=== PATIENT | female | born 1985 | race Caucasian/White ===

== ENCOUNTER 2017-12-27 15:56 | Emergency (ER) | payer BC ==
[~2017-12-27] VITALS: Ht 165.1 cm; Wt 102.3 kg
[2017-12-27 15:59] VITALS: Ht 165.1 cm; Wt 102.3 kg
[2017-12-27 16:41] LABS: BASOPHILS 0.1 % (0-2); EOSINOPHILS 2.1 % (0-7); HEMATOCRIT 36.3 % (36.0-48.0); HEMOGLOBIN 12.8 g/dL (12-16); IMMATURE GRANULOCYTES 0.1 % (0-5); LYMPHOCYTES 32.1 % (15-50); MCH 31.2 pg (26.0-34.0); MCHC 35.3 g/dL (31.0-37.0); MCV 88.5 fL (80.0-100.0); MEAN PLATELET VOLUME 9.6 fL (7.4-10.4); MONOCYTES 6.2 % (2-11); NEUTROPHILS 59.4 % (40-80); PLATELET COUNT 246 10x3/uL (130-400); RDW 12.3 % (11.5-14.5); WBC 7.3 10x3/uL (4.8-10.8)
[2017-12-27 16:46] LABS: APPEARANCE HAZY (CLEAR); BILIRUBIN NEGATIVE (NEGATIVE); COLOR RED (YELLOW); GLUCOSE NEGATIVE (NEGATIVE); KETONE NEGATIVE (NEGATIVE); NITRITE NEGATIVE (NEGATIVE); PROTEIN 1+ mg/dL (NEGATIVE); UROBILINOGEN NORMAL (NORMAL)
[2017-12-27 16:48] LABS: BACTERIA FEW /hpf (NONE SEEN); HCG URINE NEGATIVE (NEGATIVE); RED CELLS - URINE >50 /hpf (0-5)
[2017-12-27 16:59] LABS: ALBUMIN 3.3 g/dL (3.4-5.0); ALKALINE PHOSPHATASE 60 U/L (46-116); ALT (SGPT) 23 U/L (10-68); AMYLASE - SERUM 75 U/L (25-115); BILIRUBIN - TOTAL 0.27 mg/dL (0.2-1.3); CALC OSMOLALITY 277 mosm/kg (275-300); CALCIUM 9.1 mg/dL (8.5-10.1); CARBON DIOXIDE 26.5 mmol/L (21.0-32.0); CHLORIDE - SERUM 102 mmol/L (98-107); CREATININE - SERUM 0.8 mg/dL (0.6-1.3); GLUCOSE 126 mg/dL (74-106); LIPASE 113 U/L (73-393); POTASSIUM - SERUM 3.7 mmol/L (3.5-5.1); PROTEIN - SERUM 7.2 g/dL (6.4-8.2); SODIUM 139 mmol/L (136-145); UREA NITROGEN 8 mg/dL (7-18); eGFR NON AFRICAN AMERICAN 89 mL/min (90-120)
[2017-12-27 19:55] LABS: UDS - AMPHET NEGATIVE QUAL (NEGATIVE); UDS - BARB NEGATIVE QUAL (NEGATIVE); UDS - BENZO NEGATIVE QUAL (NEGATIVE); UDS - COCAINE NEGATIVE QUAL (NEGATIVE); UDS - OPIATE NEGATIVE QUAL (NEGATIVE); UDS - PCP NEGATIVE QUAL (NEGATIVE); UDS - THC NEGATIVE QUAL (NEGATIVE)
[2017-12-27 21:22] VITALS: BP 132/81
== END 2017-12-27 21:22 | disposition home or self-care (01) ==
LOC: D.ER 15:56
PROVIDERS: Family Medicine
DX: N93.9 Abnormal uterine and vaginal bleeding, unspecified (principal); N93.8 Other specified abnormal uterine and vaginal bleeding

== ENCOUNTER 2018-08-18 01:46 | Emergency (ER) | payer BC ==
[~2018-08-18] VITALS: Ht 165.1 cm; Wt 94.1 kg
[2018-08-18 01:51] VITALS: Ht 165.1 cm; Wt 94.1 kg
[2018-08-18] MEDS ORDERED: LEVOFLOXACIN500 MG PO (02:11)
[2018-08-18] MEDS ORDERED: TORADOL10 MG PO (02:41)
[2018-08-18 03:18] VITALS: BP 130/74
== END 2018-08-18 03:18 | disposition home or self-care (01) ==
LOC: D.ER 01:46
DX: L03.116 Cellulitis of left lower limb (principal)

== ENCOUNTER 2018-10-15 23:28 | Emergency (ER) | payer BC ==
[~2018-10-15] VITALS: Ht 165.1 cm; Wt 86.4 kg
[~2018-10-15 23:28] MED LIST: LEVOFLOXACIN500 MG PO; TORADOL10 MG PO
[2018-10-16 00:02] VITALS: Ht 165.1 cm; Wt 86.4 kg
[2018-10-16] MEDS ORDERED: IBUPROFEN800 MG PO (03:54)
[2018-10-16] MEDS ORDERED: CYCLOBENZAPRINE10 MG PO (03:54)
[2018-10-16 04:28] VITALS: BP 114/62
== END 2018-10-16 04:28 | disposition home or self-care (01) ==
LOC: D.ER 23:28
DX: M25.562 Pain in left knee (principal); M79.605 Pain in left leg

== ENCOUNTER 2019-02-27 01:46 | Emergency (ER) | payer BC ==
[~2019-02-27] VITALS: Ht 165.1 cm; Wt 100.0 kg
[~2019-02-27 01:46] MED LIST changes: +CYCLOBENZAPRINE10 MG PO; +IBUPROFEN800 MG PO
[2019-02-27 01:53] VITALS: Ht 165.1 cm; Wt 100.0 kg
[2019-02-27 02:12] LABS: BASOPHILS 0.3 % (0-2); HEMATOCRIT 35.5 % (36.0-48.0); HEMOGLOBIN 12.2 g/dL (12-16); IMMATURE GRANULOCYTES 0.2 % (0-5); LYMPHOCYTES 23.6 % (15-50); MCH 30.3 pg (26.0-34.0); MCHC 34.4 g/dL (31.0-37.0); MCV 88.1 fL (80.0-100.0); MEAN PLATELET VOLUME 9.2 fL (7.4-10.4); MONOCYTES 7.1 % (2-11); NEUTROPHILS 66.8 % (40-80); PLATELET COUNT 210 10x3/uL (130-400); RBC 4.03 10x6/uL (4.00-5.40); RDW 12.4 % (11.5-14.5); WBC 6.6 10x3/uL (4.8-10.8)
[2019-02-27 02:20] LABS: APTT 29.6 SECONDS (22.8-39.4); CALC OSMOLALITY 274 mosm/kg (275-300); CALCIUM 9.6 mg/dL (8.5-10.1); CHLORIDE - SERUM 102 mmol/L (98-107); CREATININE - SERUM 0.6 mg/dL (0.6-1.3); GLUCOSE 89 mg/dL (74-106); INR 1.01 (0.85-1.17); POTASSIUM - SERUM 3.8 mmol/L (3.5-5.1); PROTIME 12.8 SECONDS (11.6-15.0); SODIUM 138 mmol/L (136-145); UREA NITROGEN 13 mg/dL (7-18); eGFR NON AFRICAN AMERICAN > 90 mL/min (90-120)
[2019-02-27 02:22] LABS: D-DIMER-QUANTITATIVE < 0.27 ug/mLFEU (0.20-0.54)
[2019-02-27 02:33] LABS: APPEARANCE CLEAR (CLEAR); BILIRUBIN NEGATIVE (NEGATIVE); COLOR YELLOW (YELLOW); GLUCOSE NEGATIVE (NEGATIVE); KETONE NEGATIVE (NEGATIVE); NITRITE NEGATIVE (NEGATIVE); PROTEIN NEGATIVE (NEGATIVE); SPECIFIC GRAVITY 1.005 (1.005-1.020); UROBILINOGEN NORMAL (NORMAL)
[2019-02-27 02:36] LABS: ALBUMIN 3.4 g/dL (3.4-5.0); ALKALINE PHOSPHATASE 54 U/L (46-116); ALT (SGPT) 36 U/L (10-68); BILIRUBIN - TOTAL 0.39 mg/dL (0.2-1.3); CKMB 0.7 U/L (0.0-3.6); CREATINE KINASE 58 UL (21-215); MAGNESIUM - SERUM 2.1 mg/dL (1.8-2.4); PROTEIN - SERUM 7.1 g/dL (6.4-8.2)
[2019-02-27 02:37] LABS: TROPONIN-I < 0.017 ng/mL (0.000-0.060)
[2019-02-27 02:38] LABS: HCG URINE NEGATIVE (NEGATIVE)
[2019-02-27] MEDS ORDERED: HYDROCODON-ACE1 EAC2 PO (03:03)
[2019-02-27 03:50] VITALS: BP 126/50
== END 2019-02-27 03:50 | disposition home or self-care (01) ==
LOC: D.ER 01:46
PROVIDERS: Emergency Medicine
DX: R07.9 Chest pain, unspecified (principal); R06.00 Dyspnea, unspecified